=== PATIENT | male | born 2005 | race Two or more races ===

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

== ENCOUNTER 2025-01-20 20:16 | Emergency (ER) | payer BC ==
[2025-01-20 20:25] VITALS: BP 130/71
[2025-01-20 21:20] VITALS: PULSE 72
== END 2025-01-20 21:20 | disposition home or self-care (01) ==
LOC: MW.ED 20:16
DX: S93.402A Sprain of unspecified ligament of left ankle, initial encounter (principal); Z75.3 Unavailability and inaccessibility of health-care facilities; X50.1XXA Overexertion from prolonged static or awkward postures, initial encounter
CPT/HCPCS: 73610; 99283; A9270

== ENCOUNTER 2025-03-31 10:36 | Emergency (ER) | payer BC ==
[2025-03-31 10:59] VITALS: BP 137/74; PULSE 82
[2025-03-31] MEDS: Diphtheria,Pertussis(Acell),Tetanus Vaccine 0.5 ML Syringe IM ONE (11:08)
== END 2025-03-31 11:39 | disposition home or self-care (01) ==
LOC: MW.ED 10:36
DX: S61.215A Laceration without foreign body of left ring finger without damage to nail, initial encounter (principal); Z75.3 Unavailability and inaccessibility of health-care facilities; W23.1XXA Caught, crushed, jammed, or pinched between stationary objects, initial encounter; Z23 Encounter for immunization
CPT/HCPCS: 12001; 90471; 90715; 99283-25